=== PATIENT | male | born 1990 | race Caucasian/White ===

== ENCOUNTER 2023-03-25 14:04 | Inpatient (IN) | payer BC, SELFPAY ==
[2023-03-25 14:09] VITALS: BP 167/107; PULSE 91; RESP 18; TEMP 36.7; O2SAT 98; BMI 27.1
--- NOTE | 2023-03-25 14:13 | ED_ITS ---
HPI - Extremity Injury (Lower) 2 General: Chief Complaint: Psychiatric Symptoms Stated Complaint: 96 Time Seen by Provider: 03/25/23 14:08 Source: patient and police Mode of arrival: other Limitations: no limitations History of Present Illness: 32-year-old male is here with police und er 96-hour hold he had a court date now in the process could hurt him saying that when he left he is going to blow his head off. Patient had a 96-hour hold filled out patient is denying making those statements currently at this point. Review of Systems 2 Const: Denies: fever(s), chills, body aches or change in appetite ENMT: Denies: throat pain or dental pain Card: Denies: chest pain Resp: Denies: dyspnea GI: Denies: abdominal pain, nausea, vomiting or diarrhea Musc: Denies: neck pain or back pain Skin/Breast: Denies: rash Neuro: Denies: headache(s) Psych: Reports: suicidal ideation Physical Exam 2 Const: COMMON NORMALS: no acute distress, patient oriented x3 and healthy appearing HENMT: COMMON NORMALS: normocephalic and atraumatic HEAD & SCALP: n ormocephalic and atraumatic Neck/C-Spine: COMMON NORMALS: full ROM and supple Chest: COMMONS NORMALS: normal inspection of the chest Resp: COMMON NORMALS: normal respiratory effort Extremity: COMMON NORMALS: normal to inspection and full ROM Neuro: COMMON NORMALS: patient oriented x3, moves all extremities and no focal motor deficits Psych: COMMON NORMALS: mental status grossly normal, Normal thought process present and cooperative THOUGHT PROCESS: Normal thought process present Skin: COMMON NORMALS: no rashes or lesions noted and no wounds GENERAL SKIN EXAM: no rashes or lesions noted Course 2 Vital Signs: Vital signs: Vital Signs Temperature 98.1 F 03/25/23 14:09 Pulse Rate 91 03/25/23 14:09 Respiratory Rate 18 03/25/23 14:09 Blood Pressure 167/107 03/25/23 14:09 Pulse Oximetry 98 03/25/23 14:09 Oxygen Delivery Me thod Room Air 03/25/23 14:09 MDM - Extremity Injury (Lower) Medical Decision Making Patient presents here with suicidal ideations he is under 96-hour hold did speak to the psychiatrist patient is medically cleared and will admit. Medical Records I reviewed the patient's medical records. Lab Data I reviewed the patient's lab results. 03/25/23 14:50 03/25/23 14:50 Laboratory Results WBC 8.27 10^3/uL (3.29-11.43) 03/25/23 14:50 RBC 5.49 10^6/uL (3.85-5.65) 03/25/23 14:50 Hgb 15.10 g/dL (11.27-16.99) 03/25/23 14:50 Hct 46.0 % (37-53) 03/25/23 14:50 MCV 83.8 fl (82-101) 03/25/23 14:50 MCH 27.5 pg (27-33) 03/25/23 14:50 MCHC 32.8 g/dL (30-55) 03/25/23 14:50 RDW 13.2 % (12.1-15.1) 03/25/23 14:50 Plt Count 152 10^3/cmm (157-399) L 03/25/23 14:50 MPV 9.2 fL (7.4-10.4) 03/25/23 14:50 Neut % (Auto) 81.2 % 03/25/23 14:50 Lymph % (Auto) 13.7 % 03/25/23 14:50 [place] % (Auto) 4.0 % 03/25/23 14:50 Eos % (Auto) 0.8 % 03/25/23 14:50 Baso % (Auto) 0.2 % 03/25/23 14:50 Neut # (Auto) 6.71 10^3/uL (1.8-7.7) 03/25/23 14:50 Lymph # (Auto) 1.1 10^3/uL (0.8-4.8) 03/25/23 14:50 [place] # (Auto) 0.3 10^3/uL (0.2-0.9) 03/25/23 14:50 Eos # (Auto) 0.1 10^3/uL (0.0-0.8) 03/25/23 14:50 Baso # (Auto) 0.0 10^3/uL (0.0-0.1) 03/25/23 14:50 Nucleated RBC % (auto) 0 % 03/25/23 14:50 Nucleated RBCs # 0.0 /100WBC 03/25/23 14:50 Sodium 138 mmol/L (136-145) 03/25/23 14:50 Potassium 4.3 mmol/L (3.5-5.1) 03/25/23 14:50 Chloride 100 mmol/L (98-107) 03/25/23 14:50 Carbon Dioxide 27 mmol/L (22-29) 03/25/23 14:50 Anion Gap 15.3 (5-19) 03/25/23 14:50 BUN 15 mg/dL (6-20) 03/25/23 14:50 Creatinine 0.8 mg/dL (0.7-1.2) 03/25/23 14:50 GFR Calculation 110.7 mL/min (90-130) 03/25/23 14:50 Glucose 106 mg/dL (65-115) 03/25/23 14:50 Calculated Osmolality 287 mOsm/kg (285-295) 03/25/23 14:50 Calcium 9.3 mg/dL (8.5-10.5) 03/25/23 14:50 Total Bilirubin 0.5 mg/dL (0.15-1.2) 03/25/23 14:50 AST 41 U/L (0-40) H 03/25/23 14:50 ALT 57 U/L (0-41) H 03/25/23 14:50 Alkaline Phosphatase 122 U/L (40-130) 03/25/23 14:50 Total Protein 7.6 g/dL (6.6-8.7) 03/25/23 14:50 Albumin 4.6 g/dL (3.5-5.2) 03/25/23 14:50 Globulin 3.0 g/dL (1.3-4.6) 03/25/23 14:50 Salicylates < 0.3 mg/dL (3-10) L 03/25/23 14:50 Acetaminophen < 5.0 ug/mL (10-30) L 03/25/23 14:50 Ethyl Alcohol < 10 mg/dL (0-10) 03/25/23 14:50 No radiology studies performed this visit Discharge Plan Discharge Patient Disposition: Admitted As Inpatient Admit Provider: Kale Hager Clinical Impression: Suicidal ideation Condition: Stable Coding Level of Care Code ED [employer]
[2023-03-25 15:03] LABS: Basophils % 0.2 %; Eosinophils # 0.1 10^3/uL (0.0-0.8); Eosinophils % 0.8 %; Lymphocytes # 1.1 10^3/uL (0.8-4.8); Lymphocytes % 13.7 %; Mean Corpuscular HGB Conc 32.8 g/dL (30-55); Mean Corpuscular Hemoglobin 27.5 pg (27-33); Mean Corpuscular Volume 83.8 fl (82-101); Mean Platelet Volume 9.2 fL (7.4-10.4); Monocytes # 0.3 10^3/uL (0.2-0.9); Neutrophils # 6.71 10^3/uL (1.8-7.7); Neutrophils % 81.2 %; Nucleated Red Blood Cells % 0 %; Platelet Count 152 10^3/cmm (157-399); Red Blood Count 5.49 10^6/uL (3.85-5.65); Red Cell Distribution Width 13.2 % (12.1-15.1); White Blood Count 8.27 10^3/uL (3.29-11.43)
[2023-03-25 15:30] LABS: Alanine Aminotransferase 57 U/L (0-41); Albumin Level 4.6 g/dL (3.5-5.2); Alkaline Phosphatase 122 U/L (40-130); Aspartate Amino Transferase 41 U/L (0-40); Blood Urea Nitrogen 15 mg/dL (6-20); Calcium 9.3 mg/dL (8.5-10.5); Carbon Dioxide 27 mmol/L (22-29); Chloride 100 mmol/L (98-107); Creatinine Clr Calc Pharmacy 152.4619; Glomerular Filtration Rate 110.7 mL/min (90-130); Glucose 106 mg/dL (65-115); Osmolality Calculated 287 mOsm/kg (285-295); Sodium 138 mmol/L (136-145); Total Bilirubin 0.5 mg/dL (0.15-1.2); Total Protein 7.6 g/dL (6.6-8.7)
--- NOTE | 2023-03-25 15:30 | PC.NURSE ---
96hour holds rights read and reviewed with patient. Patient verbalized understandings and copy left at bedside.
[2023-03-25 15:31] LABS: Acetaminophen < 5.0 ug/mL (10-30); Alcohol Level < 10 mg/dL (0-10); Anion Gap 15.3 (5-19); Potassium 4.3 mmol/L (3.5-5.1); Salicylate < 0.3 mg/dL (3-10)
[2023-03-25 16:12] VITALS: BP 160/109; PULSE 109; RESP 16; TEMP 36.7; O2SAT 98
[2023-03-25] MEDS: nicotine 2 mg Gum BUCCAL (16:20)
[2023-03-25] MEDS: buprenorphine-naloxone 4-1 mg Film 2 EACH SUBLINGUAL ×2 (17:08→20:15)
[2023-03-26 06:00] VITALS: RESP 16
--- NOTE | 2023-03-26 06:25 | PC.NURSE ---
PT HAS SLEPT WELL THROUGH OUT THE NIGHT SLEEPING APPROXIMATELY 9-10 HOURS TOTAL. NO PRN MEDICATIONS WERE GIVEN.
--- NOTE | 2023-03-26 08:24 | PC.NURSE ---
Patient denies all during morning assessment. Patient appears to be stressed and anxious. Patient reports being upset because he received a call from his mother that his father has experienced a cardiac event and was sent to the hospital for surgery.
[2023-03-26] MEDS: buprenorphine-naloxone 4-1 mg Film 2 EACH SUBLINGUAL ×3 (08:25→20:50)
[2023-03-26] MEDS: nicotine 2 mg Gum BUCCAL ×3 (09:15→19:17)
--- NOTE | 2023-03-26 10:11 | P.NPUHP_ITS ---
Providers/Chief Complaint 2 Admitting Physician: Kale Hager MD Chief Complaint: 96 HPI NPU History of Present Illness Stephen Blair is a 32 year old male who presented to the emergency department with the following report: Chief Complaint: Psychiatric Symptoms Stated Complaint: 96 Time Seen by Provider: 03/25/23 14:08 Source: patient and police Mode of arrival: other Limitations: no limitations History of Present Illness: 32-year-old male is here with police under 96-hour hold he had a court date now in the process could hurt him saying that when he left he is going to blow his head off. Patient had a 96-hour hold filled out patient is denying making those statements currently at this point. The patient was admitted to the neuropsychiatric unit for definitive treatment of those issues. The patient presents today reporting that he is taking Subutex, since 2017. The patient reports that he is here because the police brought him in, and he is on a hold. The patient reports that he went to court for traffic violation, driving without a license plate, because he has a scooter and his town doesn?t allow 50 cc scooters to be driven without a license. He reports that he went to get the date reset and talked to collections attorney to make an appointment and the next thing he knew he was being taken away in handcuffs because the disability attorney thought he said something about ?blowing my head off? when all he said was ?this is enough to make my head explode.? The patient denies previous psychiatric hospitalization. He reports that he sees a counselor every time he goes to Subutex doctor, which was once a month and now every other month. He denies other outpatient services. He endorses pack a day of cigarettes. He denies alcohol use. He endorses marijuana use. He denies cocaine, methamphetamine, opiate use currently. He reports that he did cocaine once years ago, and he had methamphetamine that was mixed in his pot. He reports that he was using opiates starting around 2003, and tried programs to quit that didn?t work, so he tried Subutex. He endorses two drug rehabilitations. He denies DUI. He reports that he had a possession charge that is not on his record anymore. He reports that he was not really ready for college, but his parents pushed him into, so that led to difficulties and drug use. The patient denies a history of depression or anxiety. He denies owning any firearms. He denies any suicidal thoughts or attempts. He denies self-injurious behavior. He denies paranoia, or auditory or visual hallucinations. He denies nightmares or flashbacks. He denies ADHD or obsessive-compulsive symptoms. PSYCHIATRIC HISTORY: As above. SUBSTANCE ABUSE HISTORY: As above.? FAMILY HISTORY: The patient denies mental health issues in his family. He endorses addiction issues on mom?s side of the family. He denies suicide attempts or completions in his family. DEVELOPMENTAL HISTORY: The patient denies any issues with his mother?s or delivery of him. 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 The patient reports learning to walk and talk and meeting developmental milestones on time. The patient denies speech therapy, learning support, emotional support, or special education classes. He denies IEP. PSYCHOSOCIAL HISTORY: The patient reports that his mother and father were together at his and remain together. He has an older brother from that union. He denies any other children. He describes his childhood as great. He denies emotional, physical, or sexual abuse. He denies CYS involvement. In 2016, he endorses trauma from an accident with a table saw that took his ring finger and thumb. And then while working at a [employer] a saw caught him and took two of his knuckles. He reports that he graduated from high school. He had some college. He endorses being heterosexual, with his longest relationship being five years. He has been once and once. He has one biological child, a son who is 13 years old, who he does not see regularly, because of struggles with the mother. He denies service. He endorses being [employer]. 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 He reports that he currently lives in a house with his mom. LEGAL HISTORY: The patient reports he has been to alf for seven days. MEDICAL HISTORY: The patient endorses allergy to vancomycin and robitussin. The patient reports having a compressed disc in his back. He reports surgery related to the hand injuries. Meds NPU Home Medications Medication Instructions Recorded Confirmed Last Taken Type buprenorphine HCl 8 mg sublingual 24 mg sublingual DAILY 03/25/23 03/25/23 Unknown History tablet sertraline 50 mg tablet 100 mg PO DAILY 03/25/23 03/25/23 Unknown History Allergies Allergy/AdvReac Type Severity Reaction Status Date / Time guaifenesin [From Robitussin] Allergy ALGY-Hives Verified 03/25/23 14:22 vancomycin Allergy ALGY-Redness Verified 03/25/23 14:23 of Skin Mental Status Exam 2 MSE Comments: This is an overweight versus obsessive, white male, in hospital scrubs, with adequate grooming and eye contact. With tattoos on exposed skin, as well as thumb and ring finger missing on right hand. No abnormal movements, except for mild psychomotor retardation. Cooperative with exam in mild distress. Speech was normal rate and volume. Mood described as good; affect congruent. Thought process, organized. Thought content: patient denied any suicidal or homicidal ideation, there were no delusions reported or noted, patient denied any auditory or visual hallucinations. Attention, concentration, and memory appeared intact, but none were formally tested. Alert and oriented times three. Insight and judgment appear fair. Impulse control is limited. Vitals/I&O/Wt Last Vital Signs Temp 98.0 F 03/25/23 16:12 Pulse 109 H 03/25/23 16:12 Resp 16 03/26/23 06:00 BP 160/109 03/25/23 16:12 Pulse Ox 98 03/25/23 16:12 O2 Del Method Room Air 03/25/23 16:22 Weight last 48 hrs Weight 90.718 kg Data NPU 03/25/23 14:50 03/25/23 14:50 A&P Assessment and plan (1) Suicidal ideation: (2) PTSD (post-traumatic stress disorder): (3) Adjustment disorder with mixed disturbance of emotions and conduct: Plan This is a 32-year-old white male with some history of depression and trauma with recent legal difficulties who presents on a 96-hour hold secondary to statements reportedly made while at court and a legal situation who presents denying any lethality and reporting a desire to be discharged soon as possible. 1.? Continue current medication. 2.? Encourage individual, group, and milieu therapy. 3.? Continue q-15-minute checks for safety. 4.? Recommend sober living treatment at the highest level of care to which the patient is willing to commit. Involuntary Hold Information 2 96 Hour Hold: 96 Hour Involuntary Admission: Yes 96 Hour Hold Ending Date: 03/31/23 96 Hour Hold Ending Time: 14:04 Attestations NPU 2 Medical Necessity Statement*: Inpatient hospitalization is medically necessary and the clinically appropriate intervention, at this time. We will monitor medications and make changes as indicated. Patient will be in the hospital for over two midnights. Likely length of stay is three to five days. Coding Level of Care Code Acute Code for Chg Fwd Diagnoses Suicidal ideation R45.851 PTSD (post-traumatic stress disorder) F43.10 Adjustment disorder with mixed disturbance of emotions and conduct F43.25
[2023-03-26 13:55] LABS: Amphetamines Screen Urine Positive (Negative); Barbiturates Screen Urine Negative (Negative); Benzodiazepines Screen Urine Negative (Negative); Cocaine Screen Urine Negative (Negative); Opiate Screen Urine Negative (Negative); PCP Screen Urine Negative (Negative); THC Screen Urine Positive (Negative)
[2023-03-26 14:00] VITALS: BP 138/81; PULSE 92; RESP 16; TEMP 36.8; O2SAT 99
[2023-03-26 21:01] VITALS: RESP 16
[2023-03-27 06:00] VITALS: BP 136/70; PULSE 93; RESP 18; O2SAT 96
--- NOTE | 2023-03-27 08:12 | P.NPUPN_ITS ---
Subjective NPU 2 Subjective: Patient presented today reporting that things are going okay. After some time of continuing his previous story and after being somewhat underhanded he got his dad here under the pretext that we had planned on discharging him with that had not been discussed. His father was sent home and we had a conversation about what actually transpired at the court house and he finally admitted that he had made comments that he did not actually mean. We discussed the importance of transparency. His mother reported that guns have been removed so he has no access to firearms. We discussed the likelihood of discharge in the next 48 hours. Mental Status Exam 2 MSE Comments: This is an overweight versus obsessive, white male, in hospital scrubs, with adequate grooming and eye contact. With tattoos on exposed skin, as well as thumb and ring finger missing on right hand. No abnormal movements, except for mild psychomotor retardation. Cooperative with exam in mild distress. Speech was normal rate and volume. Mood described as good; affect congruent. Thought process, organized. Thought content: patient denied any suicidal or homicidal ideation, there were no delusions reported or noted, patient denied any auditory or visual hallucinations. Attention, concentration, and memory appeared intact, but none were formally tested. Alert and oriented times three. Insight and judgment appear fair. Impulse control is limited. Vitals/I&O/Wt Last Vital Signs Temp 98.3 F 03/26/23 14:00 Pulse 93 03/27/23 06:00 Resp 18 03/27/23 06:00 BP 136/70 03/27/23 06:00 Pulse Ox 96 03/27/23 06:00 O2 Del Method Room Air 03/27/23 06:00 Weight last 48 hrs Weight 90.718 kg Data NPU 03/25/23 14:50 03/25/23 14:50 A&P Assessment and plan (1) Suicidal ideation: (2) PTSD (post-traumatic stress disorder): (3) Adjustment disorder with mixed disturbance of emotions and conduct: Plan This is a 32-year-old white male with some history of depression and trauma with recent legal difficulties who presents on a 96-hour hold secondary to statements reportedly made while at court and a legal situation who presents denying any lethality and reporting a desire to be discharged soon as possible. 1.? Continue current medication. 2.? Encourage individual, group, and milieu therapy. 3.? Continue q-15-minute checks for safety. 4.? Recommend sober living treatment at the highest level of care to which the patient is willing to commit. 5. Guns have been put away per mom may consider discharge in the morning. Involuntary Hold Information 2 96 Hour Hold: 96 Hour Involuntary Admission: Yes 96 Hour Hold Ending Date: 03/31/23 96 Hour Hold Ending Time: 14:04 Attestations NPU 2 Medical Necessity Statement*: Inpatient hospitalization is medically necessary and the clinically appropriate intervention, at this time. We will monitor medications and make changes as indicated. Likely length of stay is 1-3 days. Coding Level of Care Code Acute Code for g Fwd Diagnoses Suicidal ideation R45.851 PTSD (post-traumatic stress disorder) F43.10 Adjustment disorder with mixed disturbance of emotions and conduct F43.25
[2023-03-27] MEDS: buprenorphine-naloxone 4-1 mg Film 2 EACH SUBLINGUAL ×3 (08:51→20:49)
[2023-03-27] MEDS: nicotine 2 mg Gum BUCCAL ×2 (12:52→18:17)
[2023-03-27 14:00] VITALS: BP 142/98; PULSE 91; RESP 18; TEMP 36.9; O2SAT 98
[2023-03-27] MEDS: hyDROXYzine 25 mg Capsule 50 MG PO (20:50)
[2023-03-27] MEDS: trazodone 50 mg Tablet PO (20:50)
[2023-03-27 22:00] VITALS: BP 159/97; PULSE 98; RESP 16; TEMP 36.8; O2SAT 100
[2023-03-28 06:00] VITALS: BP 128/73; PULSE 87; RESP 16; O2SAT 97
[2023-03-28] MEDS: buprenorphine-naloxone 4-1 mg Film 2 EACH SUBLINGUAL (08:28)
[2023-03-28] MEDS: nicotine 2 mg Gum BUCCAL ×2 (09:17→11:34)
--- NOTE | 2023-03-28 12:42 | P.NPUDS_ITS ---
Diagnoses at Discharge Discharge Diagnosis (1) Suicidal ideation: Status: Resolved (2) PTSD (post-traumatic stress disorder): Status: Acute (3) Adjustment disorder with mixed disturbance of emotions and conduct: Status: Acute Reason for Visit Reason for Visit: 96 Brief History: History of Present Illness Stephen Blair is a 32 year old male who presented to the emergency department with the following report: Chief Complaint: Psychiatric Symptoms Stated Complaint: 96 Time Seen by Provider: 03/25/23 14:08 Source: patient and police Mode of arrival: other Limitations: no limitations History of Present Illness: 32-year-old male is here with police und er 96-hour hold he had a court date now in the process could hurt him saying that when he left he is going to blow his head off. Patient had a 96-hour hold filled out patient is denying making those statements currently at this point. The patient was admitted to the neuropsychiatric unit for definitive treatment of those issues. The patient presents today reporting that he is taking Subutex, since 2016. The patient reports that he is here because the police brought him in, and he is on a hold. The patient reports that he went to court for traffic violation, driving without a license plate, because he has a scooter and his town doesn?t allow 50 cc scooters to be driven without a license. He reports that he went to get the date reset and talked to tax associate attorney to make an appointment and the next thing he knew he was being taken away in handcuffs because the deputy prosecuting attorney thought he said something about ?blowing my head off? when all he said was ?this is enough to make my head explode.? The patient denies previous psychiatric hospitalization. He reports that he sees a counselor every time he goes to Subutex doctor, which was once a month and now every other month. He denies other outpatient services. He endorses pack a day of cigarettes. He denies alcohol use. He endorses marijuana use. He denies cocaine, methamphetamine, opiate use currently. He reports that he did cocaine once years ago, and he had methamphetamine that was mixed in his pot. He reports that he was using opiates starting around 2003, and tried programs to quit that didn?t work, so he tried Subutex. He endorses two drug rehabilitations. He denies DUI. He reports that he had a possession charge that is not on his record anymore. He reports that he was not really ready for college, but his parents pushed him into, so that led to difficulties and drug use. The patient denies a history of depression or anxiety. He denies owning any firearms. He denies any suicidal thoughts or attempts. He denies self-injurious behavior. He denies paranoia, or auditory or visual hallucinations. He denies nightmares or flashbacks. He denies ADHD or obsessive-compulsive symptoms. PSYCHIATRIC HISTORY: As above. SUBSTANCE ABUSE HISTORY: As above.? FAMILY HISTORY: The patient denies mental health issues in his family. He endorses addiction issues on mom?s side of the family. He denies suicide attempts or completions in his family. DEVELOPMENTAL HISTORY: The patient denies any issues with his mother?s or delivery of him. 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 The patient reports learning to walk and talk and meeting developmental milestones on time. The patient denies speech therapy, learning support, emotional support, or special education classes. He denies IEP. PSYCHOSOCIAL HISTORY: The patient reports that his mother and father were together at his and remain together. He has an older brother from that union. He denies any other children. He describes his childhood as great. He denies emotional, physical, or sexual abuse. He denies CYS involvement. In 2016, he endorses trauma from an accident with a table saw that took his ring finger and thumb. And then while working at a [employer] a saw caught him and took two of his knuckles. He reports that he graduated from high school. He had some college. He endorses being heterosexual, with his longest relationship being five years. He has been once and once. He has one biological child, a son who is 13 years old, who he does not see regularly, because of struggles with the mother. He denies service. He endorses being [employer]. 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 He reports that he currently lives in a house with his mom. LEGAL HISTORY: The patient reports he has been to [facility] for seven days. MEDICAL HISTORY: The patient endorses allergy to vancomycin and robitussin. The patient reports having a compressed disc in his back. He reports surgery related to the hand injuries. Hospital Course Hospital Course He slowly acclimated to the individual, group and milieu therapies provided. He presented on a 96-hour hold after reportedly making legal statements in the court house while dealing with a legal matter. He initially was not honest and did not take responsibility for what he actually said that led to the accounting professor filing for the hold. Eventually he was able to be more candid about his situation and did not want additional medication. We continued his Suboxone and Zoloft. He was able to work with the social work team to get appropriate follow-up and aftercare. He had significant improvement and was able to contract for safety outside of the hospital prior to discharge. During the hospitalization, the patient had routine laboratory studies which were within normal limits except for a few outliers.? Additionally, there was a general medical evaluation which was also within normal limits and revealed no new acute processes.? At the time of discharge, he denied psychosis or lethality.? Mood and anxiety were well managed.? The patient endorsed a plan to avoid all drugs of abuse and follow up with the aftercare recommendations of the treatment team.? The patient was evaluated and deemed to be absent credible lethality and had achieved the maximum benefit from an inpatient hospitalization, and so was discharged. Involuntary Hold Information 96 Hour Hold: 96 Hour Involuntary Admission: Yes 96 Hour Hold Ending Date: 03/31/23 96 Hour Hold Ending Time: 14:04 Mental Status Exam MSE Comments: This is an overweight versus obsessive, white male, in hospital scrubs, with adequate grooming and eye contact. With tattoos on exposed skin, as well as thumb and ring finger missing on right hand. No abnormal movements, except for mild psychomotor retardation. Cooperative with exam in no acute distress. Speech was normal rate and volume. Mood described as good; affect congruent. Thought process, organized. Thought content: patient denied any suicidal or homicidal ideation, there were no delusions reported or noted, patient denied any auditory or visual hallucinations. Attention, concentration, and memory appeared intact, but none were formally tested. Alert and oriented times three. Insight and judgment appear fair. Impulse control is limited. Discharge Data Studies Completed and Pending: Laboratory Results WBC 8.27 10^3/uL (3.2 9-11.43) 03/25/23 14:50 RBC 5.49 10^6/uL (3.8 5-5.65) 03/25/23 14:50 Hgb 15.10 g/dL (11.27 -16.99) 03/25/23 14:50 Hct 46.0 % (37-53) 03/25/23 14:50 MCV 83.8 fl (82-101) 03/25/23 14:50 MCH 27.5 pg (27-33) 03/25/23 14:50 MCHC 32.8 g/dL (30-55) 03/25/23 14:50 RDW 13.2 % (12.1-15.1 ) 03/25/23 14:50 Plt Count 152 10^3/cmm (157 -399) L 03/25/23 14:50 MPV 9.2 fL (7.4-10.4) 03/25/23 14:50 Neut % (Auto) 81.2 % 03/25/23 14:50 Lymph % (Auto) 13.7 % 03/25/23 14:50 [place] % (Auto) 4.0 % 03/25/23 14:50 Eos % (Auto) 0.8 % 03/25/23 14:50 Baso % (Auto) 0.2 % 03/25/23 14:50 Neut # (Auto) 6.71 10^3/uL (1.8 -7.7) 03/25/23 14:50 Lymph # (Auto) 1.1 10^3/uL (0.8- 4.8) 03/25/23 14:50 [place] # (Auto) 0.3 10^3/uL (0.2- 0.9) 03/25/23 14:50 Eos # (Auto) 0.1 10^3/uL (0.0- 0.8) 03/25/23 14:50 Baso # (Auto) 0.0 10^3/uL (0.0- 0.1) 03/25/23 14:50 Nucleated RBC % (a uto) 0 % 03/25/23 14:50 Nucleated RBCs # 0.0 /100WBC 03/25/23 14:50 Sodium 138 mmol/L (136-1 45) 03/25/23 14:50 Potassium 4.3 mmol/L (3.5-5 .1) 03/25/23 14:50 Chloride 100 mmol/L (98-10 7) 03/25/23 14:50 Carbon Dioxide 27 mmol/L (22-29) 03/25/23 14:50 Anion Gap 15.3 (5-19) 03/25/23 14:50 BUN 15 mg/dL (6-20) 03/25/23 14:50 Creatinine 0.8 mg/dL (0.7-1. 2) 03/25/23 14:50 GFR Calculation 110.7 mL/min (90- 130) 03/25/23 14:50 Glucose 106 mg/dL (65-115 ) 03/25/23 14:50 Calculated Osmolal ity 287 mOsm/kg (285- 295) 03/25/23 14:50 Calcium 9.3 mg/dL (8.5-10 .5) 03/25/23 14:50 Total Bilirubin 0.5 mg/dL (0.15-1 .2) 03/25/23 14:50 AST 41 U/L (0-40) H 03/25/23 14:50 ALT 57 U/L (0-41) H 03/25/23 14:50 Alkaline Phosphata se 122 U/L (40-130) 03/25/23 14:50 Total Protein 7.6 g/dL (6.6-8.7 ) 03/25/23 14:50 Albumin 4.6 g/dL (3.5-5.2 ) 03/25/23 14:50 Globulin 3.0 g/dL (1.3-4.6 ) 03/25/23 14:50 Salicylates < 0.3 mg/dL (3-10 ) L 03/25/23 14:50 Urine Opiates Scre en Negative ng/mL (N egative) 03/26/23 13:00 Acetaminophen < 5.0 ug/mL (10-3 0) L 03/25/23 14:50 Ur Barbiturates Sc reen Negative ng/mL (N egative) 03/26/23 13:00 Ur Phencyclidine S crn Negative ng/mL (N egative) 03/26/23 13:00 Ur Amphetamines Sc reen Positive ng/mL (N egative) H 03/26/23 13:00 U Benzodiazepines Scrn Negative ng/mL (N egative) 03/26/23 13:00 Urine Cocaine Scre en Negative ng/mL (N egative) 03/26/23 13:00 U Marijuana (THC) Screen Positive ng/mL (N egative) H 03/26/23 13:00 Ethyl Alcohol < 10 mg/dL (0-10) 03/25/23 14:50 Vitals: Last Vital Signs Temp 98.3 F 03/27/23 22:00 Pulse 87 03/28/23 06:00 Resp 16 03/28/23 06:00 BP 128/73 03/28/23 06:00 Pulse Ox 97 03/28/23 06:00 O2 Del Method Room Air 03/28/23 06:00 Discharge Plan Discharge Patient Disposition: Home Condition: Stable Prescriptions: Continued sertraline 50 mg tablet 100 mg PO DAILY buprenorphine HCl 8 mg tablet, sublingual 24 mg SUBLINGUAL DAILY Discharge Orders: Discharge Order (Routine); Ordered 03/28/23 Ordered By: Kale Hager Referrals: [facility] [Other] - 05/03/23 8:30 am (Follow up) [facility] [employer] [Other] Shannan Jang, SENIOR ADVISOR [Family Provider] - Discharge Diet: Regular Discharge Activity: Resume usual activity Patient Instructions: PTSD (Post Traumatic Stress Disorder) (DC), Suicide Prevention (DC), Opioid Safety Discharge Attestations NPU Time Spent in Discharge Care*: less than 30 min Specific Discharge Activities: Specific discharge activities: educating patient, discussing with wrapper caser/social workers/dc planners, documenting/other paperwork and evaluating patient/reviewing data Coding Level of Care Code Acute Code for Chg Fwd Diagnoses Suicidal ideation R45.851 PTSD (post-traumatic stress disorder) F43.10 Adjustment disorder with mixed disturbance of emotions and conduct F43.25
[2023-03-28 12:44] VITALS: BP 128/73; PULSE 87; RESP 16; O2SAT 97
== END 2023-03-28 14:35 | disposition home or self-care (01) | DRG 882 ==
LOC: ER 14:34 → NP 15:33
PROVIDERS: Admitting Provider Psychiatry & Neurology Psychiatry; Emergency Provider Emergency Medicine; Family Provider Counselor Professional; Visit Provider Psychiatry & Neurology Psychiatry
DX: F43.25 Adjustment disorder with mixed disturbance of emotions and conduct (principal); R45.851 Suicidal ideations; F43.10 Post-traumatic stress disorder, unspecified; F17.210 Nicotine dependence, cigarettes, uncomplicated; Z81.3 Family history of other psychoactive substance abuse and dependence
CPT/HCPCS: 36415; 80053; 80306; 80307; 85025; 97150; 97165; 99285; J0573